=== PATIENT | male | born 1995 | race Caucasian/White ===

== ENCOUNTER 2020-01-28 05:25 | Emergency (ER) | payer BC, MEDICAID ==
[~2020-01-28] VITALS: Ht 185.4 cm; Wt 100.0 kg
[2020-01-28 06:41] VITALS: BP 114/73
[2020-01-28 06:57] LABS: CLARITY,URINE CLEAR (Clear); COLOR,URINE YELLOW (Yellow); GLUCOSE, URINE NEGATIVE (Neg); KETONES,URINE NEGATIVE (Neg); LEUKOCYTE ESTERASE ,URINE NEGATIVE (Neg); NITRITES, URINE NEGATIVE (Neg); OCCULT BLOOD,URINE NEGATIVE (Neg); PH,URINE 7.5 (4.8-8.0); PROTEIN,URINE NEGATIVE (Neg)
[2020-01-28 07:02] LABS: UA COLLECTION TYPE CLN CATCH MIDSTREAM
== END 2020-01-28 08:47 | disposition home or self-care (01) ==
LOC: ER 05:26
DX: N50.811 Right testicular pain (principal); Z72.89 Other problems related to lifestyle
CPT/HCPCS: 74176; 76870; 81003; 93976; 99285

== ENCOUNTER 2021-10-07 21:03 | Emergency (ER) | payer BC ==
[~2021-10-07] VITALS: Ht 180.3 cm; Wt 175.0 kg
== END 2021-10-07 22:13 | disposition left against medical advice (07) ==
LOC: ER 21:03
DX: R10.9 Unspecified abdominal pain (principal); Z53.21 Procedure and treatment not carried out due to patient leaving prior to being seen by health care provider